=== PATIENT | female | born 1980 | race Caucasian/White ===

== ENCOUNTER 2020-12-12 10:02 | Emergency (ER) | payer OTHER, SELFPAY ==
[2020-12-12 10:12] VITALS: BP 134/90; PULSE 96; RESP 18; TEMP 36.8; O2SAT 98
[2020-12-12 10:24] VITALS: BP 134/90; PULSE 96; RESP 18; TEMP 36.8; O2SAT 98
--- NOTE | 2020-12-12 10:24 | ED.FEMALEGU ---
HPI - Female Genitourinary General Chief complaint: Urogenital-Female Stated complaint: Bladder issues Source: patient and RN notes reviewed Limitations: no limitations History of Present Illness HPI Narrative: The overweight patient, previously mostly healthy, presents with urinary symptoms. Patient states she has a shorter 2-day history of urinary frequency and urgency with suprapubic fullness. No fever, vaginal discharge, hematuria, vomiting/diarrhea, low back pain. She had reportedly noncontributory CT scan of the abdomen for kidney stones . Symptoms are mild most noticeable with micturition, screening urinalysis remarkable only for 3+ leukocytes and trace heme Related Data Home Medications Medication Instructions Recorded Confirmed dicyclomine 20 mg PO PRN PRN 12/12/20 12/12/20 Allergies Allergy/AdvReac Type Severity Reaction Status Date / Time clavulanic acid Allergy Intermediate NAUSEA/VOMI Verified 12/12/20 10:24 TING metoclopramide Allergy Intermediate AGITATION;F Verified 12/12/20 10:24 LUSHING Review of Systems Review of Systems: General/Constitutional: No weight loss,fever Eyes: N0: Redness,discharge Ears/Nose/Throat: No: Epistaxis,ear discharge Respiratory: Denies: Hemoptysis Gastrointestinal: No Vomiting, Bleeding-rectal Skin: No Lumps, eruption Neurologic: No Focal Weakness,Sz Hematologic: Denies: Petechiae/Purpura Psychiatric: No: Suicida ideationl All Other Systems: Reviewed and Negative PMFSH Comments At time of signature, agree with nursing past medical, surgical, social and family history. There is no relevant family history pertinent to the presenting complaint Exam Narrative: General Appearance: Well appearing, No distress Nose: Normal nose Mouth/Throat: Normal appearing, Normal lips, Supple Respiratory: Airway patent, No respiratory distress Abdomen: Soft, Non-tender, no CVAT Musculoskeletal: Full ROM Skin: Warm, Dry Neurological: A&O x3,, Normal affect Course Vital Signs Vital signs: Vital Signs Temperature 98.2 F 12/12/20 10:12 Pulse Rate 96 12/12/20 10:12 Respiratory Rate 12/12/20 10:12 Blood Pressure 134/90 12/12/20 10:12 Pulse Oximetry 98 12/12/20 10:12 Temperature 98.2 F 12/12/20 10:24 Pulse Rate 96 12/12/20 10:24 Respiratory Rate 18 12/12/20 10:24 Blood Pressure 134/90 12/12/20 10:24 Pulse Oximetry 98 12/12/20 10:24 MDM - Female Genitourinary Lab Data Labs: Urine Glucose Negative Reference Range: Negative Urine Glucose Negative Reference Range: Negative Urine Bilirubin Negative Reference Range: Negative Urine Bilirubin Negative Reference Range: Negative Urine Ketone Negative Reference Range: Negative Urine Ketone Negative Reference Range: Negative Urine Specific [place] 1.010 Reference Range:1.001-1.035 Urine Specific [place] 1.010 Reference Range:1.001-1.035 Urine Blood 2+ Reference Range: Negative * * Urine pH 5.5 Reference Range: 5.0-9.0 Urine pH 5.5 Reference Range: 5.0-9.0 Urine Protein Negative Reference Range: Negative Urin
== END 2020-12-12 10:25 | disposition home or self-care (01) ==
PROVIDERS: Emergency Provider Emergency Medicine; PCP Emergency Medicine
DX: N30.00 Acute cystitis without hematuria (principal)
CPT/HCPCS: 81003; 87077; 87086; 87088; 87186; 99213; G0463

== ENCOUNTER 2024-02-09 16:48 | Emergency (ER) | payer OTHER, SELFPAY ==
--- NOTE | 2024-02-09 16:51 | ED.URI ---
HPI - URI/Sore Throat General Chief Complaint: Upper Respiratory Infection Stated Complaint: cold symptoms Time Seen by Provider: 02/09/24 17:02 Source: patient, RN notes reviewed and old records reviewed Mode of arrival: ambulatory Limitations: no limitations History of Present Illness HPI Narrative: 43-year-old female presents to the [facility] complaints of a sore throat. Symptoms started last night, has used salt water gargles with no relief. Patient reports history strep throat. Denies fevers. Related Data Home Medications Medication Instructions Recorded Confirmed levothyroxine 50 mcg tablet 50 mcg PO DAILY 11/29/23 02/09/24 (Synthroid) lisinopril 10 mg tablet 10 mg PO DAILY 11/29/23 02/09/24 pantoprazole 20 mg tablet,delayed 20 mg PO DIRECTED 02/09/24 02/09/24 release Allergies Allergy/AdvReac Type Severity Reaction Status Date / Time clavulanic acid AdvReac Intermediate NAUSEA/VOMI Verified 02/09/24 17:02 TING metoclopramide AdvReac Intermediate AGITATION;F Verified 02/09/24 17:02 LUSHING amoxicillin [From Augmentin] AdvReac Mild Vomiting Verified 02/09/24 17:02 Review of Systems Review of Systems: All systems reviewed & are unremarkable except as noted in HPI and below Constitutional: Constitutional: Reports no additional constitutional complaints ENT: Reports as per HPI and Reports sore throat Cardiovascular: Cardiovascular: Reports no additional cardiovascular complaints, Denies chest pain and Denies dyspnea Respiratory: Respiratory: Reports no additional respiratory complaints, Denies chest congestion, Denies cough and Denies dyspnea Gastrointestinal: Gastrointestinal: Reports no additional gastrointestinal complaints, Denies abdominal pain, Denies nausea and Denies vomiting Musculoskeletal: Musculoskeletal: Reports no additional musculoskeletal complaints Integumentary/Breasts: Skin/Breast: Reports system reviewed and no additional complaints, except as docu PMFSH Past Medical History Medical History Irritable bowel syndrome (IBS) Thyroid disease Surgical History Surgical History H/O colonoscopy H/O foot surgery H/O wrist surgery H/O: H/O: hysterectomy Family History Family History Mother Hypertension Thyroid disease Father Hypertension Heart disease Diabetes mellitus Sibling Heart disease Grandparent Diabetes mellitus Heart disease Social History Social History Smoking status: Never smoker Alcohol intake: former Substance use: never Comments At the time of my signature, I reviewed and agree with the nursing past medical, surgical, social, and family history. There is no relevant family history pertinent to the patient complaint. Exam Const: General: cooperative, healthy appearing, comfortable, no acute distress, well developed, alert and well nourished Nutritional Appearance: well nourished and obese Orientation/consciousness: patient oriented x3 Limitations: no limitations HENMT: Head: normal to inspection Ears: hearing grossly normal bilaterally, external ears normal, TM's normal bilaterally, EAC's normal, mastoids normal and no periauricular adenopathy Face/Nose/Sinus: Normal external nose present, normal facial exam and face symmetric Face and sinus: normal facial exam and face symmetric Mouth: Yes Normal oral and palatal mucosa present, Yes lip normal and Yes tongue normal Throat: tonsils normal, uvula midline, postnasal drainage and no uvular edema Eyes: General: appearance normal, both eyes and all related structures Alignment and Position: alignment normal Periorbital: periorbital findings normal Neck: Neck: normal visual inspection, full ROM, no lymphadenopathy and no meningeal signs Chest: Chest palpation & inspection: normal inspection of the chest Resp: Effort & Inspection: normal respiratory effort and able to speak in complete sentences Auscultation: clear to auscultation bilaterally, no crackles, no rales, no rhonchi and no wheezes Cardio: Rate: regular rate Skin: General skin exam: normal color and no rashes or lesions noted Lesions: no lesions Rashes: no rashes Wounds: no wounds Neuro: General: patient oriented x3, gait normal, tone normal, moves all extremities and no meningeal signs Cognition (Neuro): normal cognition Speech: normal speech Gait exam (Neuro): Normal gait present Extrem: General: normal to inspection, full ROM, capillary refill normal and normal gait Psych: Appearance: grossly normal and well kempt Mental Status: mental status grossly normal Speech and movement: Normal speech and movement present and Clear speech present Affect: normal affect Attitude: cooperative Course Course Level of Care: Express Care Visit Vital Signs Vital signs: Vital Signs Temperature 97.6 F 02/09/24 17:00 Pulse Rate 69 02/09/24 17:00 Respiratory Rate 18 02/09/24 17:00 Blood Pressure 126/59 L 02/09/24 17:00 Pulse Oximetry 100 02/09/24 17:00 Oxygen Delivery Room Air 02/09/24 17:00 Temperature 97.6 F 02/09/24 17:02 Pulse Rate 69 02/09/24 17:02 Respiratory Rate 18 02/09/24 17:02 Blood Pressure 126/59 L 02/09/24 17:02 Pulse Oximetry 100 02/09/24 17:02 Oxygen Delivery Room Air 02/09/24 17:02 Reviewed MDM - URI/Sore Throat MDM Narrative Medical decision making narrative: Patient sitting comfortably in exam room. Nontoxic, vitals stable. Patient presents with pharyngitis/laryngitis since last night Patient strep is negative, culture ordered No other acute findings noted except for postnasal drainage Patient appropriate for outpatient treatment and follow-up with viral pharyngitis Discharge instructions reviewed with patient, as well as provided in writing per nursing staff. The instructions also include specific and strict return/GO TO THE ER as well as f/u information. All questions have been answered, and the patient deny any further questions with discharge and discharge plan. Some parts of this dictation were generated by voice recognition software and may contain typographical and/or grammatical inaccuracies. Differential Diagnosis Differential diagnosis: Likely upper respiratory infection, otitis media, sinusitis, viral infection and pharyngitis Lab Data Labs: Lab Results 02/09/24 Range/Units 17:17 POC Grp A Strep Screen Negative (Negative) Reviewed Critical Care Time Critical Care Time Critical Care Time: No Discharge Plan Discharge Clinical Impression: Acute viral pharyngitis Patient Disposition: Home, Self-Care Condition: Stable Instructions: Antibiotic Form, Pharyngitis (ED) Additional Instructions: Your rapid strep swab was negative today at [facility]. A throat culture will be sent to the laboratory for further testing. If the test is positive, you will receive a phone call within 48 hours and an appropriate antibiotic will be initiated at that time. Your symptoms are likely due to a viral illness, which is not treated with antibiotics. Typically viral infections last 7-10 days, can linger for couple of weeks. It is very important to treat your symptoms. Drink Plenty of water, Gatorade, Pedialyte, ice pops or Jell-O. -Alternate Tylenol and Motrin per package directions for fever or pain. You can alternate every 4 hours -Antihistamine medication such as Benadryl at night and Zyrtec/Claritin/Ivana during the day can help improve symptoms. -doing daily nasal irrigations can help relieve pressure your sinuses. Things like a Neti pot -Use Flonase twice a day for 5 days then daily to help reduce the inflammation and dry up your sinuses. -You can also use Mucinex. Be sure to drink plenty of water with this medication at least 8 ounces with every dose and it is important to drink 8 to 10 glasses of water per day. Water is a natural decongestant -Eat and drink things that are easy to swallow, like tea or soup, or popsicles. -Oral rinses such as: Salt water gargles and/or may use topical anesthetic (eg. Chloraseptic spray) or lozenges to relieve dryness or throat pain). -Frequent hand washing or hand multi disciplined language analyst is one of the best ways to prevent spread of infection. -Using a vaporizer or humidifier at night will also help thin secretions and help with coughing up phlegm. -Follow up with primary care provider in 7-10 days if condition is not improving - For new or worsening symptoms go directly to the nearest ER Patient Language: Emir[place] Prescriptions: No Action pantoprazole 20 mg tablet,delayed release (DR/EC) 20 mg PO DIRECTED levothyroxine [Synthroid] 50 mcg tablet 50 mcg PO DAILY lisinopril 10 mg tablet 10 mg PO DAILY estradiol 1 mg tablet 1.5 mg PO DAILY 30 Days Qty: 45 11RF Follow-up/Referrals: Eliseo,CLAUDIA Gentile [Primary Care Provider] - 2 Weeks ([facility] care follow up ) Stand Alone Forms: Work/School Release IP Time of Disposition: 17:16
[2024-02-09 17:00] VITALS: BP 126/59; PULSE 69; RESP 18; TEMP 36.4; O2SAT 100
[2024-02-09 17:02] VITALS: BP 126/59; PULSE 69; RESP 18; TEMP 36.4; O2SAT 100
[2024-02-09 17:19] LABS: EDSTREPNEGPOS1 Negative (Negative)
== END 2024-02-09 17:20 | disposition home or self-care (01) ==
PROVIDERS: Emergency Provider Nurse Practitioner; PCP Physician Assistant
DX: J02.8 Acute pharyngitis due to other specified organisms (principal); E07.9 Disorder of thyroid, unspecified
CPT/HCPCS: 87081; 87880; 99213; G0463